=== PATIENT | female | born 1935 | race Caucasian/White ===

== ENCOUNTER 2017-03-24 07:47 | Outpatient (CLI) | payer MEDICARE, OTHER | END 2017-03-24 07:48 | disposition home or self-care (01) | DX: I48.91 Unspecified atrial fibrillation (principal); Z79.01 Long term (current) use of anticoagulants ==

== ENCOUNTER 2017-03-26 07:16 | Outpatient (CLI) | payer MEDICARE, OTHER | END 2017-03-26 07:17 | disposition home or self-care (01) | DX: I48.2 Chronic atrial fibrillation (principal); Z79.01 Long term (current) use of anticoagulants ==

== ENCOUNTER 2017-04-01 09:32 | Outpatient (CLI) | payer MEDICARE, OTHER ==
[2017-04-01 18:29] LABS: INR 1.3 (0.8-1.2); PT - PROTHROMBIN TIME 14.7 secs (9.9-12.6)
== END 2017-04-01 09:33 | disposition home or self-care (01) ==
LOC: LAB.F 09:32
PROVIDERS: ATTEND Internal Medicine Cardiovascular Disease
DX: I48.2 Chronic atrial fibrillation (principal); Z79.01 Long term (current) use of anticoagulants
CPT/HCPCS: 36415; 85610

== ENCOUNTER 2017-04-09 08:33 | Outpatient (CLI) | payer MEDICARE, OTHER | END 2017-04-09 08:34 | disposition home or self-care (01) | DX: I48.2 Chronic atrial fibrillation (principal); Z79.01 Long term (current) use of anticoagulants ==

== ENCOUNTER 2017-04-17 07:08 | Outpatient (CLI) | payer MEDICARE, OTHER ==
[2017-04-17 11:23] LABS: PT - PROTHROMBIN TIME 45.1 secs (9.9-12.6)
== END 2017-04-17 07:09 | disposition home or self-care (01) ==
LOC: LAB.F 07:08
PROVIDERS: ATTEND Internal Medicine Cardiovascular Disease
DX: I48.2 Chronic atrial fibrillation (principal); Z79.01 Long term (current) use of anticoagulants
CPT/HCPCS: 36415; 85610

== ENCOUNTER 2017-04-24 07:47 | Outpatient (CLI) | payer MEDICARE, OTHER ==
[2017-04-24 17:48] LABS: INR 3.1 (0.8-1.2); PT - PROTHROMBIN TIME 35.8 secs (9.9-12.6)
== END 2017-04-24 07:48 | disposition home or self-care (01) ==
LOC: LAB.F 07:47
PROVIDERS: ATTEND Internal Medicine Cardiovascular Disease
DX: I48.2 Chronic atrial fibrillation (principal); Z79.01 Long term (current) use of anticoagulants
CPT/HCPCS: 36415; 85610

== ENCOUNTER 2017-05-04 07:11 | Outpatient (CLI) | payer MEDICARE, OTHER ==
[2017-05-04 10:50] LABS: INR 2.8 (0.8-1.2); PT - PROTHROMBIN TIME 31.3 secs (9.9-12.6)
== END 2017-05-04 07:12 | disposition home or self-care (01) ==
LOC: LAB.F 07:11
PROVIDERS: ATTEND Internal Medicine Cardiovascular Disease
DX: I48.2 Chronic atrial fibrillation (principal); Z79.01 Long term (current) use of anticoagulants
CPT/HCPCS: 36415; 85610

== ENCOUNTER 2017-05-18 07:34 | Outpatient (CLI) | payer MEDICARE, OTHER ==
[2017-05-18 10:23] LABS: INR 3.1 (0.8-1.2); PT - PROTHROMBIN TIME 34.7 secs (9.9-12.6)
== END 2017-05-18 07:35 | disposition home or self-care (01) ==
LOC: LAB.F 07:34
PROVIDERS: ATTEND Internal Medicine Cardiovascular Disease
DX: I48.2 Chronic atrial fibrillation (principal); Z79.01 Long term (current) use of anticoagulants
CPT/HCPCS: 36415; 85610

== ENCOUNTER 2017-06-01 07:09 | Outpatient (CLI) | payer MEDICARE, OTHER ==
[2017-06-01 11:08] LABS: INR 1.6 (0.8-1.2); PT - PROTHROMBIN TIME 18.4 secs (9.9-12.6)
== END 2017-06-01 07:10 | disposition home or self-care (01) ==
LOC: LAB.F 07:09
PROVIDERS: ATTEND Internal Medicine Cardiovascular Disease
DX: I48.2 Chronic atrial fibrillation (principal)
CPT/HCPCS: 36415; 85610

== ENCOUNTER 2017-06-09 08:14 | Outpatient (CLI) | payer MEDICARE, OTHER ==
[2017-06-09 10:41] LABS: INR 1.8 (0.8-1.2); PT - PROTHROMBIN TIME 20.2 secs (9.9-12.6)
== END 2017-06-09 08:15 | disposition home or self-care (01) ==
LOC: LAB.F 08:14
PROVIDERS: ATTEND Internal Medicine Cardiovascular Disease
DX: I48.2 Chronic atrial fibrillation (principal); Z79.01 Long term (current) use of anticoagulants
CPT/HCPCS: 36415; 85610

== ENCOUNTER 2017-06-23 07:26 | Outpatient (CLI) | payer MEDICARE, OTHER ==
[2017-06-23 11:07] LABS: INR 1.6 (0.8-1.2); PT - PROTHROMBIN TIME 18.5 secs (9.9-12.6)
== END 2017-06-23 07:27 | disposition home or self-care (01) ==
LOC: LAB 07:26
PROVIDERS: ATTEND Internal Medicine Cardiovascular Disease
DX: I48.2 Chronic atrial fibrillation (principal); Z79.01 Long term (current) use of anticoagulants
CPT/HCPCS: 36415; 85610

== ENCOUNTER 2017-06-30 07:26 | Outpatient (CLI) | payer MEDICARE, OTHER ==
[2017-06-30 10:47] LABS: INR 2.5 (0.8-1.2); PT - PROTHROMBIN TIME 28.5 secs (9.9-12.6)
== END 2017-06-30 07:27 | disposition home or self-care (01) ==
LOC: LAB.F 07:26
PROVIDERS: ATTEND Internal Medicine Cardiovascular Disease
DX: I48.2 Chronic atrial fibrillation (principal); Z79.01 Long term (current) use of anticoagulants
CPT/HCPCS: 36415; 85610

== ENCOUNTER 2017-07-07 07:24 | Outpatient (CLI) | payer MEDICARE, OTHER ==
[2017-07-07 11:42] LABS: INR 2.3 (0.8-1.2); PT - PROTHROMBIN TIME 26.2 secs (9.9-12.6)
== END 2017-07-07 07:25 | disposition home or self-care (01) ==
LOC: LAB.F 07:24
PROVIDERS: ATTEND Internal Medicine Cardiovascular Disease
DX: I48.2 Chronic atrial fibrillation (principal); Z79.01 Long term (current) use of anticoagulants
CPT/HCPCS: 36415; 85610

== ENCOUNTER 2017-07-09 07:18 | Outpatient (CLI) | payer MEDICARE, OTHER ==
[2017-07-09 13:42] LABS: CHOL/HDL RATIO 3.7 (<4.4); CHOLESTEROL 232 mg/dL; HDL CHOLESTEROL 63 mg/dL; LDL CHOLESTEROL,DIRECT 129 mg/dL; LDL/HDL RATIO 2.3 (<4.4); TRIGLYCERIDES 130 mg/dL; VLDL CHOLESTEROL 26 mg/dL
== END 2017-07-09 07:19 | disposition home or self-care (01) ==
LOC: LAB.F 07:18
PROVIDERS: ATTEND Internal Medicine Cardiovascular Disease
DX: E78.5 Hyperlipidemia, unspecified (principal); I48.0 Paroxysmal atrial fibrillation; I10 Essential (primary) hypertension
CPT/HCPCS: 36415; 80061; 80162; 82550; 84450; 84460

== ENCOUNTER 2017-07-22 07:30 | Outpatient (CLI) | payer MEDICARE, OTHER | END 2017-07-22 07:31 | disposition home or self-care (01) | LOC: LAB.F 07:30 | PROVIDERS: ATTEND Internal Medicine Cardiovascular Disease | DX: I48.2 Chronic atrial fibrillation (principal); Z79.01 Long term (current) use of anticoagulants | CPT/HCPCS: 85610 ==

== ENCOUNTER 2017-08-20 07:15 | Outpatient (CLI) | payer MEDICARE, OTHER | END 2017-08-20 07:16 | disposition home or self-care (01) | LOC: LAB.F 07:15 | PROVIDERS: ATTEND Internal Medicine Cardiovascular Disease | DX: I48.2 Chronic atrial fibrillation (principal); Z79.01 Long term (current) use of anticoagulants | CPT/HCPCS: 85610 ==

== ENCOUNTER 2017-08-28 07:35 | Outpatient (CLI) | payer MEDICARE, OTHER | END 2017-08-28 07:36 | disposition home or self-care (01) | LOC: LAB.F 07:35 | PROVIDERS: ATTEND Internal Medicine Cardiovascular Disease | DX: I48.2 Chronic atrial fibrillation (principal); Z79.01 Long term (current) use of anticoagulants | CPT/HCPCS: 85610 ==

== ENCOUNTER 2017-09-07 07:26 | Outpatient (CLI) | payer MEDICARE, OTHER | END 2017-09-07 07:27 | disposition home or self-care (01) | LOC: LAB.F 07:26 | PROVIDERS: ATTEND Internal Medicine Cardiovascular Disease | DX: I48.2 Chronic atrial fibrillation (principal); Z79.01 Long term (current) use of anticoagulants | CPT/HCPCS: 85610 ==

== ENCOUNTER 2017-09-14 07:36 | Outpatient (CLI) | payer MEDICARE, OTHER | END 2017-09-14 07:37 | disposition home or self-care (01) | LOC: LAB.F 07:36 | PROVIDERS: ATTEND Internal Medicine Cardiovascular Disease | DX: I48.2 Chronic atrial fibrillation (principal); Z79.01 Long term (current) use of anticoagulants | CPT/HCPCS: 85610 ==

== ENCOUNTER 2018-04-20 09:10 | Outpatient (CLI) | payer MEDICARE, OTHER | END 2018-04-20 09:11 | disposition home or self-care (01) | LOC: LAB.F 09:10 | PROVIDERS: ATTEND Internal Medicine Cardiovascular Disease | DX: I48.2 Chronic atrial fibrillation (principal); Z79.01 Long term (current) use of anticoagulants | CPT/HCPCS: 85610 ==

== ENCOUNTER 2018-05-04 08:58 | Outpatient (CLI) | payer MEDICARE, OTHER | END 2018-05-04 08:59 | disposition home or self-care (01) | LOC: LAB.F 08:58 | PROVIDERS: ATTEND Internal Medicine Cardiovascular Disease | DX: I48.2 Chronic atrial fibrillation (principal); Z79.01 Long term (current) use of anticoagulants | CPT/HCPCS: 85610 ==

== ENCOUNTER 2018-05-25 07:33 | Outpatient (CLI) | payer MEDICARE, OTHER | END 2018-05-25 07:34 | disposition home or self-care (01) | LOC: LAB.F 07:33 | PROVIDERS: ATTEND Internal Medicine Cardiovascular Disease | DX: I48.2 Chronic atrial fibrillation (principal); Z79.01 Long term (current) use of anticoagulants | CPT/HCPCS: 85610 ==

== ENCOUNTER 2018-06-08 07:44 | Outpatient (CLI) | payer MEDICARE, OTHER | END 2018-06-08 07:45 | disposition home or self-care (01) | LOC: LAB.F 07:44 | PROVIDERS: ATTEND Internal Medicine Cardiovascular Disease | DX: I48.2 Chronic atrial fibrillation (principal); Z79.01 Long term (current) use of anticoagulants | CPT/HCPCS: 85610 ==

== ENCOUNTER 2018-06-17 07:40 | Outpatient (CLI) | payer MEDICARE, OTHER | END 2018-06-17 07:41 | disposition home or self-care (01) | LOC: LAB.F 07:40 | PROVIDERS: ATTEND Internal Medicine Cardiovascular Disease | DX: I48.2 Chronic atrial fibrillation (principal); Z79.01 Long term (current) use of anticoagulants | CPT/HCPCS: 85610 ==

== ENCOUNTER 2018-06-30 07:28 | Outpatient (CLI) | payer MEDICARE, OTHER | END 2018-06-30 07:29 | disposition home or self-care (01) | LOC: LAB.F 07:28 | PROVIDERS: ATTEND Internal Medicine Cardiovascular Disease | DX: I48.2 Chronic atrial fibrillation (principal) | CPT/HCPCS: 85610 ==

== ENCOUNTER 2018-07-22 07:13 | Outpatient (CLI) | payer MEDICARE, OTHER | END 2018-07-22 07:14 | disposition home or self-care (01) | LOC: LAB.F 07:13 | PROVIDERS: ATTEND Internal Medicine Cardiovascular Disease | DX: I48.2 Chronic atrial fibrillation (principal); Z79.01 Long term (current) use of anticoagulants | CPT/HCPCS: 85610 ==

== ENCOUNTER 2018-07-28 07:26 | Outpatient (CLI) | payer MEDICARE, OTHER | END 2018-07-28 07:27 | disposition home or self-care (01) | LOC: LAB.F 07:26 | PROVIDERS: ATTEND Internal Medicine Cardiovascular Disease | DX: I48.2 Chronic atrial fibrillation (principal); Z79.01 Long term (current) use of anticoagulants | CPT/HCPCS: 85610 ==

== ENCOUNTER 2018-08-27 07:18 | Outpatient (CLI) | payer MEDICARE, OTHER | END 2018-08-27 07:19 | disposition home or self-care (01) | LOC: LAB 07:18 | PROVIDERS: ATTEND Internal Medicine Cardiovascular Disease | DX: I48.2 Chronic atrial fibrillation (principal); Z79.01 Long term (current) use of anticoagulants | CPT/HCPCS: 85610 ==

== ENCOUNTER 2018-09-08 07:41 | Outpatient (CLI) | payer MEDICARE, OTHER | END 2018-09-08 07:42 | disposition home or self-care (01) | LOC: LAB.F 07:41 | PROVIDERS: ATTEND Internal Medicine Cardiovascular Disease | DX: I48.2 Chronic atrial fibrillation (principal); Z79.01 Long term (current) use of anticoagulants | CPT/HCPCS: 85610 ==

== ENCOUNTER 2018-09-21 08:13 | Outpatient (CLI) | payer MEDICARE, OTHER | END 2018-09-21 08:14 | disposition home or self-care (01) | LOC: LAB.F 08:13 | PROVIDERS: ATTEND Internal Medicine Cardiovascular Disease | DX: I48.2 Chronic atrial fibrillation (principal); Z79.01 Long term (current) use of anticoagulants | CPT/HCPCS: 85610 ==

== ENCOUNTER 2019-04-19 09:58 | Outpatient (CLI) | payer MEDICARE, OTHER ==
[2019-04-19 18:08] LABS: INR 2.3 (0.8-1.2)
== END 2019-04-19 09:59 | disposition home or self-care (01) ==
LOC: LAB.F 09:58
PROVIDERS: ATTEND Internal Medicine Cardiovascular Disease
DX: I48.2 Chronic atrial fibrillation (principal); Z79.01 Long term (current) use of anticoagulants
CPT/HCPCS: 36415; 85610

== ENCOUNTER 2019-05-03 07:24 | Outpatient (CLI) | payer MEDICARE, OTHER ==
[2019-05-03 13:21] LABS: INR 4.2 (0.8-1.2); PT - PROTHROMBIN TIME 46.9 secs (9.9-12.6)
== END 2019-05-03 07:25 | disposition home or self-care (01) ==
LOC: LAB.F 07:24
PROVIDERS: ATTEND Internal Medicine Cardiovascular Disease
DX: I48.0 Paroxysmal atrial fibrillation (principal); Z79.01 Long term (current) use of anticoagulants
CPT/HCPCS: 36415; 85610

== ENCOUNTER 2019-05-09 07:28 | Outpatient (CLI) | payer MEDICARE, OTHER | END 2019-05-09 07:29 | disposition home or self-care (01) | LOC: LAB.F 07:28 | PROVIDERS: ATTEND Internal Medicine Cardiovascular Disease | DX: I48.0 Paroxysmal atrial fibrillation (principal); Z79.01 Long term (current) use of anticoagulants | CPT/HCPCS: 85610 ==

== ENCOUNTER 2019-05-18 07:18 | Outpatient (CLI) | payer MEDICARE, OTHER ==
[2019-05-18 11:34] LABS: INR 1.6 (0.8-1.2); PT - PROTHROMBIN TIME 17.9 secs (9.9-12.6)
== END 2019-05-18 07:19 | disposition home or self-care (01) ==
LOC: LAB.F 07:18
PROVIDERS: ATTEND Internal Medicine Cardiovascular Disease
DX: I48.2 Chronic atrial fibrillation (principal); Z79.01 Long term (current) use of anticoagulants
CPT/HCPCS: 36415; 85610

== ENCOUNTER 2019-05-30 10:23 | Outpatient (CLI) | payer MEDICARE, OTHER | END 2019-05-30 10:24 | disposition home or self-care (01) | LOC: LAB.F 10:23 | PROVIDERS: ATTEND Internal Medicine Cardiovascular Disease | DX: I48.2 Chronic atrial fibrillation (principal); Z79.01 Long term (current) use of anticoagulants | CPT/HCPCS: 85610 ==

== ENCOUNTER 2019-06-07 07:35 | Outpatient (CLI) | payer MEDICARE, OTHER | END 2019-06-07 07:36 | disposition home or self-care (01) | LOC: LAB.S 07:35 | PROVIDERS: ATTEND Internal Medicine Cardiovascular Disease | DX: I48.2 Chronic atrial fibrillation (principal); Z79.01 Long term (current) use of anticoagulants | CPT/HCPCS: 85610 ==

== ENCOUNTER 2019-06-21 07:14 | Outpatient (CLI) | payer MEDICARE, OTHER | END 2019-06-21 07:15 | disposition home or self-care (01) | LOC: LAB.S 07:14 | PROVIDERS: ATTEND Internal Medicine Cardiovascular Disease | DX: I48.2 Chronic atrial fibrillation (principal); Z79.01 Long term (current) use of anticoagulants | CPT/HCPCS: 85610 ==

== ENCOUNTER 2019-07-05 07:07 | Outpatient (CLI) | payer MEDICARE, OTHER | END 2019-07-05 07:08 | disposition home or self-care (01) | LOC: LAB.S 07:07 | PROVIDERS: ATTEND Internal Medicine Cardiovascular Disease | DX: I48.2 Chronic atrial fibrillation (principal); Z79.01 Long term (current) use of anticoagulants | CPT/HCPCS: 36415; 85610 ==

== ENCOUNTER 2019-07-12 07:27 | Outpatient (CLI) | payer MEDICARE, OTHER | END 2019-07-12 07:28 | disposition home or self-care (01) | LOC: LAB.S 07:27 | PROVIDERS: ATTEND Internal Medicine Cardiovascular Disease | DX: I48.2 Chronic atrial fibrillation (principal); Z79.01 Long term (current) use of anticoagulants | CPT/HCPCS: 85610 ==

== ENCOUNTER 2019-07-19 07:09 | Outpatient (CLI) | payer MEDICARE, OTHER | END 2019-07-19 07:10 | disposition home or self-care (01) | LOC: LAB.S 07:09 | PROVIDERS: ATTEND Internal Medicine Cardiovascular Disease | DX: I48.2 Chronic atrial fibrillation (principal); Z79.01 Long term (current) use of anticoagulants | CPT/HCPCS: 85610 ==

== ENCOUNTER 2019-07-26 07:51 | Outpatient (CLI) | payer MEDICARE, OTHER | END 2019-07-26 07:52 | disposition home or self-care (01) | LOC: LAB.S 07:51 | PROVIDERS: ATTEND Internal Medicine Cardiovascular Disease | DX: I48.2 Chronic atrial fibrillation (principal); Z79.01 Long term (current) use of anticoagulants | CPT/HCPCS: 85610 ==

== ENCOUNTER 2019-08-22 07:13 | Outpatient (CLI) | payer MEDICARE, OTHER | END 2019-08-22 07:14 | disposition home or self-care (01) | LOC: LAB.S 07:13 | PROVIDERS: ATTEND Internal Medicine Cardiovascular Disease | DX: I48.2 Chronic atrial fibrillation (principal); Z79.01 Long term (current) use of anticoagulants | CPT/HCPCS: 85610 ==